=== PATIENT | female | born 1980 | race Two or more races ===

== ENCOUNTER 2019-08-18 12:52 | Emergency (ER) | payer OTHER ==
[~2019-08-18] VITALS: Ht 149.9 cm; Wt 77.6 kg
--- NOTE | 2019-08-18 13:15 | NUR ---
PT CAME IN TO THE ED FOR MEDICAL CLEARANCE FOR DETOX TREATMENT. PT AAOX4, VSS, BREATHING EVEN AND UNLABORED ON ROOM AIR. PT AMBULATORY W/ STEADY GAIT. AWAITING FOR EVAL
[2019-08-18 13:50] LABS: BASOPHILS # (AUTO) 0.1 /CMM (0.0-0.2); EOSINOPHILS % (AUTO) 1.6 % (0.0-6.0); HEMATOCRIT 37 % (33-45); HEMOGLOBIN 12.3 g/dL (11.5-14.8); LYMPHOCYTES # (AUTO) 2.1 /CMM (0.8-4.8); LYMPHOCYTES % (AUTO) 34.9 % (20.0-44.0); MEAN CORPUSCULAR HGB CONC 33 g/dl (31.0-36.0); MEAN CORPUSCULAR VOLUME 96 fL (82-100); MONOCYTES # (AUTO) 0.4 /CMM (0.1-1.30); MONOCYTES % (AUTO) 7.2 % (2.0-12.0); NEUTROPHILS # (AUTO) 3.3 /CMM (1.8-8.9); NEUTROPHILS % (AUTO) 55.3 % (43.0-81.0); PLATELET COUNT (AUTO) 256 /CMM (150-450); RED BLOOD CELL COUNT(AUTO) 3.85 MIL/uL (4.0-5.2); WHITE BLOOD COUNT (AUTO) 5.9 K/uL (4.3-11.0)
--- NOTE | 2019-08-18 14:00 | NUR ---
URINE COLLECTED AND SENT TO LAB
[2019-08-18 14:01] LABS: CALCIUM, SERUM 8.9 mg/dL (8.5-10.1); CARBON DIOXIDE 28 mmol/L (21-32); CHLORIDE 105 mmol/L (98-107); CREATININE 1.1 mg/dL (0.6-1.3); GLUCOSE 88 mg/dL (74-106); POTASSIUM 3.9 mmol/L (3.5-5.1); SODIUM SERUM 139 mmol/L (136-145); UREA NITROGEN, BLOOD 11 mg/dL (7-18)
[2019-08-18 14:07] LABS: ALANINE AMINOTRANSFERASE 50 U/L (12-78); ALCOHOL, BLOOD < 3 mg/dL (0-0); ALKALINE PHOSPHATASE 87 U/L (46-116); ASPARTATE AMINOTRANSFERASE 33 U/L (15-37); BILIRUBIN,DIRECT 0.1 mg/dL (0.0-0.2); BILIRUBIN,TOTAL 0.3 mg/dL (0.2-1.0); TOTAL PROTEIN, SERUM 7.2 g/dL (6.4-8.2)
[2019-08-18 14:18] LABS: APPEARANCE,URINE Clear (CLEAR); BILIRUBIN,URINE Negative (NEGATIVE); BLOOD, URINE Negative Ery/uL (NEGATIVE); COLOR,URINE Yellow (YELLOW); KETONES,URINE Negative (NEGATIVE); LEUKOCYTE ESTERASE ,URINE Negative (NEGATIVE); NITRITE, URINE Negative (NEGATIVE); PROTEIN,URINE Negative (NEGATIVE); UGLUCOSE Negative (NEGATIVE); UROBILINOGEN,URINE 0.2 EU/dL (0.2)
[2019-08-18 15:38] VITALS: BP 134/71
== END 2019-08-18 15:39 | disposition home or self-care (01) ==
LOC: ER 13:01
DX: Z02.89 Encounter for other administrative examinations (principal); F10.10 Alcohol abuse, uncomplicated; F32.9 Major depressive disorder, single episode, unspecified; F17.200 Nicotine dependence, unspecified, uncomplicated; Z88.0 Allergy status to penicillin; Y90.9 Presence of alcohol in blood, level not specified
CPT/HCPCS: 36415; 80048-TC; 80076-TC; 80305; 81000-TC; 84703-TC; 85025-TC; G0480

== ENCOUNTER 2020-05-06 19:51 | Emergency (ER) | payer OTHER ==
[~2020-05-06] VITALS: Ht 149.9 cm; Wt 74.8 kg
[2020-05-06 19:51] VITALS: BP 117/76
== END 2020-05-06 20:24 | disposition home or self-care (01) ==
LOC: ER 19:52
DX: F32.9 Major depressive disorder, single episode, unspecified (principal); F43.10 Post-traumatic stress disorder, unspecified; R45.851 Suicidal ideations; Z88.0 Allergy status to penicillin; Z04.6 Encounter for general psychiatric examination, requested by authority

== ENCOUNTER 2021-05-26 17:50 | Emergency (ER) | payer OTHER ==
[~2021-05-26] VITALS: Ht 149.9 cm; Wt 77.1 kg
--- NOTE | 2021-05-26 18:05 | NUR ---
Patient bibmother, c/o +Si, no plans at the moment. Wan't voluntary admission to [facility]. On room air, breathing evenly and unlabored. Kept comfortabel, will continue to monitor accordingly. Sitter at bedside for constant monitoring.
--- NOTE | 2021-05-26 18:06 | NUR ---
urine collected and sent to lab.
--- NOTE | 2021-05-26 18:14 | NUR ---
covid swab collected and sent to lab.
[2021-05-26 18:15] LABS: BILIRUBIN,URINE Negative (NEGATIVE); COLOR,URINE YELLOW (YELLOW); LEUKOCYTE ESTERASE ,URINE Negative (NEGATIVE); NITRITE, URINE Negative (NEGATIVE); PROTEIN,URINE Negative (NEGATIVE); UGLUCOSE Negative (NEGATIVE); UROBILINOGEN,URINE 0.2 EU/dL (0.2)
[2021-05-26 18:18] LABS: BASOPHILS % (AUTO) 0.5 % (0.0-2.0); EOSINOPHILS % (AUTO) 0.7 % (0.0-6.0); HEMATOCRIT 38 % (33-45); HEMOGLOBIN 12.6 g/dL (11.5-14.8); LYMPHOCYTES # (AUTO) 3.2 K/uL (0.8-4.8); LYMPHOCYTES % (AUTO) 33.6 % (20.0-44.0); MEAN CORPUSCULAR HGB CONC 33 g/dl (31.0-36.0); MEAN CORPUSCULAR VOLUME 92 fL (82-100); MONOCYTES # (AUTO) 0.8 K/uL (0.1-1.30); MONOCYTES % (AUTO) 8.3 % (2.0-12.0); NEUTROPHILS # (AUTO) 5.5 K/uL (1.8-8.9); NEUTROPHILS % (AUTO) 56.9 % (43.0-81.0); PLATELET COUNT (AUTO) 334 K/uL (150-450); RED BLOOD CELL COUNT(AUTO) 4.13 MIL/uL (4.0-5.2); WHITE BLOOD COUNT (AUTO) 9.6 K/uL (4.3-11.0)
[2021-05-26 18:30] LABS: CALCIUM, SERUM 9.4 mg/dL (8.5-10.1); CARBON DIOXIDE 27 mmol/L (21-32); CHLORIDE 105 mmol/L (98-107); CREATININE 1.1 mg/dL (0.6-1.3); GLUCOSE 116 mg/dL (74-106); POTASSIUM 3.6 mmol/L (3.5-5.1); SODIUM SERUM 141 mmol/L (136-145); UREA NITROGEN, BLOOD 7 mg/dL (7-18)
[2021-05-26 18:51] LABS: ALANINE AMINOTRANSFERASE 36 U/L (12-78); ALCOHOL, BLOOD 5 mg/dL (0-0); ALKALINE PHOSPHATASE 92 U/L (46-116); ASPARTATE AMINOTRANSFERASE 26 U/L (15-37); BILIRUBIN,DIRECT 0.1 mg/dL (0.0-0.2); BILIRUBIN,TOTAL 0.2 mg/dL (0.2-1.0); TOTAL PROTEIN, SERUM 7.8 g/dL (6.4-8.2)
[2021-05-26 18:53] LABS: ACETAMINOPHEN < 2 ug/ml (10-30)
--- NOTE | 2021-05-26 19:05 | NUR ---
REC'D REPORT FROM NORI RE[facility]
--- NOTE | 2021-05-26 19:33 | NUR ---
VERBAL ORDER 1MG ATIVAN PO
[2021-05-26] MEDS ORDERED: LORAZEPAM 1 MG TABLET ONE (19:34)
[2021-05-26] MEDS ORDERED: LORAZEPAM 1 MG TABLET PO ONE (20:00)
--- NOTE | 2021-05-26 20:44 | NUR ---
ACCEPTED AT [facility] DR. BACON
--- NOTE | 2021-05-26 20:53 | NUR ---
PT WILL BE TRANSFERRED TO ON LICENSE OF [facility] IN 110 TO 120 MINS VIA [facility] AT [facility].
[2021-05-26 23:05] VITALS: BP 118/80
--- NOTE | 2021-05-26 23:25 | NUR ---
[facility] AT BED SIDE TO CUSTOMER SUCCESS REPRESENTATIVE THE PT
--- NOTE | 2021-05-26 23:31 | NUR ---
REPORT GIVEN [facility]
--- NOTE | 2021-05-26 23:36 | NUR ---
PT TRANPORTED TO [facility]
== END 2021-05-26 23:36 ==
LOC: ER 17:54
DX: R45.851 Suicidal ideations (principal); F19.10 Other psychoactive substance abuse, uncomplicated; F32.9 Major depressive disorder, single episode, unspecified; F20.9 Schizophrenia, unspecified; Z91.19 Patient's noncompliance with other medical treatment and regimen; K21.9 Gastro-esophageal reflux disease without esophagitis; F41.9 Anxiety disorder, unspecified; Z88.0 Allergy status to penicillin; R94.31 Abnormal electrocardiogram [ECG] [EKG]; R00.0 Tachycardia, unspecified; R03.0 Elevated blood-pressure reading, without diagnosis of hypertension; Z20.822 Contact with and (suspected) exposure to COVID-19
CPT/HCPCS: 36415; 80048; 80076; 80143; 80307; 80320; 81003; 84702; 84703; 85025; 87426; 93005; 99285; C9803; G0480